=== PATIENT | female | born 1930 | race Caucasian/White ===

== ENCOUNTER 2017-06-29 02:57 | Emergency (ER) | payer MEDICARE ==
[~2017-06-29] VITALS: Ht 170.2 cm; Wt 86.2 kg
[~2017-06-29 02:57] MED LIST: FURO-145 PO
--- NOTE | 2017-06-29 04:10 | NUR ---
TO BED 1 AMBULATORY BIB CAREGIVER C/O RFA PAIN WITH SWELLING S/P GLF, PT DENIES KO, DRY BLOOD NOTED ON NARES. PT AAOX4 NO ACUTE DISTRESS NOTED, RESP EVEN AND UNLABORED. PLACE PT ON CARDIAC MONITORING, CONTINUOUS POX. PENDING ER MD LEAL.
--- NOTE | 2017-06-29 04:13 | NUR ---
OLVIN MONTAÑO AT BEDSIDE TO MEL RECINOS.
[2017-06-29] MEDS ORDERED: HYDROMORPHONE 1 MG/1 ML DISP.SYRIN IV ONE (04:30)
[2017-06-29] MEDS ORDERED: ONDANSETRON HCL/PF 4 MG/2 ML VIAL IV ONE (04:30)
--- NOTE | 2017-06-29 04:50 | NUR ---
THREAD MARKER AT BEDSIDE FOR XRAYS.
[2017-06-29 05:05] LABS: BASOPHILS # (AUTO) 0.1 /CMM (0.0-0.2); BASOPHILS % (AUTO) 0.7 % (0.0-2.0); EOSINOPHILS # (AUTO) 0.1 /CMM (0.0-0.7); EOSINOPHILS % (AUTO) 0.5 % (0.0-6.0); HEMATOCRIT 38 % (33-45); HEMOGLOBIN 12.6 g/dL (11.5-14.8); LYMPHOCYTES # (AUTO) 1.3 /CMM (0.8-4.8); MEAN CORPUSCULAR HEMOGLOBIN 31 PG (26.0-33.0); MEAN CORPUSCULAR HGB CONC 34 g/dl (31.0-36.0); MEAN CORPUSCULAR VOLUME 92 fL (82-100); MONOCYTES # (AUTO) 0.6 /CMM (0.1-1.30); NEUTROPHILS # (AUTO) 8.1 /CMM (1.8-8.9); NEUTROPHILS % (AUTO) 79.8 % (43.0-81.0); PLATELET COUNT (AUTO) 237 /CMM (150-450); RDW COEFFICIENT OF VARIATION 15.3 (11.5-15.0); RED BLOOD CELL COUNT(AUTO) 4.09 MIL/uL (4.0-5.2); WHITE BLOOD COUNT (AUTO) 10.1 K/uL (4.3-11.0)
[2017-06-29 05:12] LABS: CALCIUM, SERUM 8.9 mg/dL (8.5-10.1); CARBON DIOXIDE 29 mmol/L (21-32); CHLORIDE 100 mmol/L (98-107); CREATININE 0.7 mg/dL (0.6-1.3); GLUCOSE 124 mg/dL (74-106); POTASSIUM 4.2 mmol/L (3.5-5.1); SODIUM SERUM 136 mmol/L (136-145); UREA NITROGEN, BLOOD 18 mg/dL (7-18)
--- NOTE | 2017-06-29 05:22 | NUR ---
PT ASLEEP, NO ACUTE DISTRESS NOTED, RESP EVEN AND UNLABORED. CALL LIGHT WIHTIN REACH. PT CAREGIVER REMAINS AT BEDSIDE.
[2017-06-29 06:20] LABS: INR 1.05 (0.87-1.13); PROTHROMBIN TIME 11.3 SECS (9.5-12.7)
--- NOTE | 2017-06-29 07:25 | NUR ---
IV removed. Catheter intact and site benign. Pressure and 4x4 applied to site. No bleeding noted. Patient discharged to home in stable condition. Written and verbal after care instructions given. Patient verbalizes understanding of instruction. pt aaox4 no acute distress noted, resp even and unlabored. pain within acceptable level to pt. pt caregiver at bedside to take pt home.
[2017-06-29 07:29] VITALS: BP 152/69
== END 2017-06-29 07:30 | disposition home or self-care (01) ==
LOC: ER 02:58
DX: S52.501A Unspecified fracture of the lower end of right radius, initial encounter for closed fracture (principal); S50.811A Abrasion of right forearm, initial encounter; S09.8XXA Other specified injuries of head, initial encounter; I10 Essential (primary) hypertension; C50.911 Malignant neoplasm of unspecified site of right female breast; Z88.0 Allergy status to penicillin; W18.39XA Other fall on same level, initial encounter; Y93.89 Activity, other specified; Y92.89 Other specified places as the place of occurrence of the external cause; Y99.8 Other external cause status
CPT/HCPCS: 36415; 70450-TC; 71010-TC; 72125-TC; 72170-TC; 73090-TC; 73130-TC; 80048-TC; 85025-TC; 85730-TC; A4606; A6402; Z7610

== ENCOUNTER 2018-06-09 14:10 | Outpatient (CLI) | payer MEDICARE | END 2018-06-09 23:59 | disposition home health service (06) | LOC: WOU 14:10 | PROVIDERS: ATTEND Surgery | DX: Z48.817 Encounter for surgical aftercare following surgery on the skin and subcutaneous tissue (principal); S31.829A Unspecified open wound of left buttock, initial encounter; X58.XXXA Exposure to other specified factors, initial encounter; Y92.89 Other specified places as the place of occurrence of the external cause; Z87.891 Personal history of nicotine dependence; Z85.3 Personal history of malignant neoplasm of breast; Z68.37 Body mass index [BMI] 37.0-37.9, adult; I10 Essential (primary) hypertension; Z88.6 Allergy status to analgesic agent; Z91.010 Allergy to peanuts | CPT/HCPCS: 11043; 87070-TC; 87075-TC; 87186-TC; A6402; Z7610 ==

== ENCOUNTER 2018-06-24 14:45 | Outpatient (CLI) | payer MEDICARE | END 2018-06-24 23:59 | disposition home health service (06) | LOC: WOU 14:45 | PROVIDERS: ATTEND Surgery | DX: S31.829A Unspecified open wound of left buttock, initial encounter (principal); X58.XXXA Exposure to other specified factors, initial encounter; Y92.89 Other specified places as the place of occurrence of the external cause; I10 Essential (primary) hypertension; Z68.37 Body mass index [BMI] 37.0-37.9, adult; Z85.3 Personal history of malignant neoplasm of breast; Z90.11 Acquired absence of right breast and nipple; Z87.891 Personal history of nicotine dependence | CPT/HCPCS: 11043; A6402; Z7610 ==

== ENCOUNTER 2018-06-30 13:54 | Outpatient (CLI) | payer MEDICARE | END 2018-06-30 23:59 | disposition home health service (06) | LOC: WOU 13:54 | PROVIDERS: ATTEND Surgery | DX: S31.829A Unspecified open wound of left buttock, initial encounter (principal); X58.XXXA Exposure to other specified factors, initial encounter; Y92.89 Other specified places as the place of occurrence of the external cause; I10 Essential (primary) hypertension; Z68.37 Body mass index [BMI] 37.0-37.9, adult; Z85.3 Personal history of malignant neoplasm of breast; Z90.11 Acquired absence of right breast and nipple; Z87.891 Personal history of nicotine dependence | CPT/HCPCS: 11043; A6402; Z7610 ==

== ENCOUNTER 2018-07-14 14:01 | Outpatient (CLI) | payer MEDICARE | END 2018-07-14 23:59 | disposition home health service (06) | LOC: WOU 14:01 | PROVIDERS: ATTEND Surgery | DX: S31.829A Unspecified open wound of left buttock, initial encounter (principal); X58.XXXA Exposure to other specified factors, initial encounter; Y93.89 Activity, other specified; Y92.89 Other specified places as the place of occurrence of the external cause; Z68.37 Body mass index [BMI] 37.0-37.9, adult; I10 Essential (primary) hypertension; Z85.3 Personal history of malignant neoplasm of breast; Z87.891 Personal history of nicotine dependence; L91.8 Other hypertrophic disorders of the skin; Z90.11 Acquired absence of right breast and nipple | CPT/HCPCS: 11043; A6402; Z7610 ==

== ENCOUNTER 2018-07-21 14:00 | Outpatient (CLI) | payer MEDICARE | END 2018-07-21 23:59 | disposition home health service (06) | LOC: WOU 14:00 | PROVIDERS: ATTEND Surgery | DX: T81.89XA Other complications of procedures, not elsewhere classified, initial encounter (principal); L03.317 Cellulitis of buttock; B95.4 Other streptococcus as the cause of diseases classified elsewhere; B95.2 Enterococcus as the cause of diseases classified elsewhere; Z16.11 Resistance to penicillins; Z68.37 Body mass index [BMI] 37.0-37.9, adult; I10 Essential (primary) hypertension; Z85.3 Personal history of malignant neoplasm of breast; L91.8 Other hypertrophic disorders of the skin | CPT/HCPCS: 11043; 87070-TC; 87075-TC; 87186-TC; A6402; Z7610 ==

== ENCOUNTER 2018-07-28 13:58 | Outpatient (CLI) | payer MEDICARE | END 2018-07-28 23:59 | disposition home health service (06) | LOC: WOU 13:58 | PROVIDERS: ATTEND Surgery | DX: T81.89XA Other complications of procedures, not elsewhere classified, initial encounter (principal); L03.317 Cellulitis of buttock; Z68.37 Body mass index [BMI] 37.0-37.9, adult; I10 Essential (primary) hypertension; Z85.3 Personal history of malignant neoplasm of breast; L91.8 Other hypertrophic disorders of the skin; Z90.11 Acquired absence of right breast and nipple | CPT/HCPCS: 11043; A6402; Z7610 ==